=== PATIENT | male | born 1965 | race Caucasian/White ===

== ENCOUNTER 2020-06-17 05:40 | Emergency (ER) | payer OTHER, SELFPAY ==
--- NOTE | ~2020-06-17 | CT_ITS ---
EXAMINATION: CT ABDOMEN AND PELVIS WITHOUT CONTRAST CLINICAL INFORMATION: Right lower quadrant pain. Concern for appendicitis. COMPARISON: None. TECHNIQUE: Contiguous axial thin section helical images of the abdomen and pelvis were performed without oral or IV contrast. The data set was reformatted in the coronal and sagittal planes and reviewed on an independent workstation. Please note that evaluation for inflammatory and infectious processes is significantly limited due to the lack of IV contrast. DLP: 661 mGy-cm. FINDINGS: The visualized lung bases are clear. The visualized portions of the heart are unremarkable. The liver is of normal size and attenuation without focal lesions nor intrahepatic biliary ductal dilation. A normal gallbladder is identified. There is no wall thickening or discernible pericholecystic fluid. The spleen, pancreas, adrenal glands are unremarkable. Both kidneys are of normal size and attenuation without nephrolithiasis. There is right grade 2 hydroureteronephrosis secondary to an obstructive 3 mm distal right ureteral calculus. There is no abdominal free fluid. There is neither mesenteric nor retroperitoneal lymphadenopathy. Normal unopacified loops of small and large bowel are identified. There is no pelvic free fluid. The urinary bladder is unremarkable. There is neither pelvic nor inguinal lymphadenopathy. Bone windows: Neither sclerotic nor lytic bone lesions are identified. There is marked disc height loss at L5/S1. CT/CT abdomen pelvis wo con IMPRESSION: Limited study secondary to the lack of IV contrast. Please note that evaluation for inflammatory and infectious processes is significantly limited due to the lack of IV contrast. Right grade 2 hydroureteronephrosis secondary to an obstructive 3 mm distal right ureteral calculus. Automated exposure control (Care Dose) Adjustment of the mA and/or kv according to patient size (this includes techniques or standardized protocols for targeted exams where dose is matched to indication / reason for exam; i.e. extremities or head).
[2020-06-17 05:47] VITALS: BP 148/98; TEMP 36.4; O2SAT 100; BMI 28.5
--- NOTE | 2020-06-17 05:59 | ED.ABDPAIN ---
HPI - Abdominal Pain General Chief Complaint: Abdominal Pain Stated Complaint: Abdominal Pain Time Seen by Provider: 06/17/20 05:58 Source: patient Mode of arrival: ambulatory Limitations: no limitations History of Present Illness HPI narrative: Patient with no significant past medical history woke up at 04:00 with severe pain in lower abdomen unable to urinate pain radiating to right lower quadrant very anxious when he arrived walking around in the room unable to sit no nausea no vomiting. No history of kidney stone no dysuria no diarrhea patient never had similar pain in the past no flank pain Related Data Allergies Allergy/AdvReac Type Severity Reaction Status Date / Time No Known Allergies Allergy Unverified 12/04/19 19:42 [No Known Allergies*] Review of Systems Review of Systems Constitutional : No Weight loss, No Fever, No Chills ENT/Mouth : No sore throat, No Rhinorrhea Eyes: No Eye Pain, No Swelling Cardiovascular : No Chest Pain, no palpitations Respiratory : No Cough, No Sputum, no shortness of breath Gastrointestinal : no Nausea, No Vomiting, No Diarrhea, + abdominal Pain, no black stools Genitourinary : No Dysuria, No Urinary Frequency Musculoskeletal : No joint pain, No Myalgias, No Joint Swelling Skin : No Skin Lesions, No rash Neuro : No Weakness, No Numbness, No Dizziness, No Headache Psych : No Anxiety/Panic, No Depression Heme/Lymph: No Bruising, No Lymphadenopathy Endocrine : No Polyuria, No Polydipsia All other systems reviewed and are negative Physical Exam Vital Signs: Vital Signs: Last Vital Signs Temp 97.6 F 06/17/20 05:47 BP 148/98 H 06/17/20 05:47 Pulse Ox 100 06/17/20 05:47 Body Mass Index 28.5 Appearance: Alert. Oriented X3. Very anxious walking around in the room Eyes: Pupils equal, round and reactive to light. ENT: Pharynx normal. Neck: Normal inspection. Neck supple. CVS: Normal heart rate and rhythm. Pulses normal. Respiratory: No respiratory distress. Breath sounds normal. Abdomen: Soft , tenderness suprapubic and right lower quadrant no rebound tenderness or guarding Bowel sounds are present, no mass palpable, no CVA tenderness Skin: Skin warm and dry. Normal skin color. Normal skin turgor. Extremities: No lower extremity edema. Neuro: Oriented X 3. No motor deficit. No sensory deficit. MDM - Abdominal Pain MDM Narrative Medical decision making narrative: Patient is very anxious unable to sit because of pain but able to walk etiology is not very clear possibilities UTI kidney stone diverticulitis or appendicitis. Will do the labs CT scan of the abdomen check the UA Differential Diagnosis Differential diagnosis: Likely acute appendicitis, calculus of kidney, diverticulitis and renal colic PMFSH Social History Social History Advance Directives: No
[2020-06-17] MEDS: ondansetron HCL 4 MG/2 ML VIAL IVPUSH (06:14)
[2020-06-17] MEDS: Morphine Sulfate 4 MG/ML CARTRIDGE IVPUSH ×2 (06:14→10:04)
[2020-06-17] MEDS: 0.9 % Sodium Chloride 1,000 ML 999 ML IVCONT (06:14)
[2020-06-17 06:19] LABS: MANUAL DIFF FLAG NO
--- NOTE | 2020-06-17 06:26 | PC.NURSE ---
PT TO ED WITH C/O LOWER ABD PAIN WHICH WOKE PT UP FROM SLEEP. IN ROOM FOR EVAL. HL PLACED TO LAC, LABS DRAWN TO LAB, NS UP AND RUNNING W/O. PT TO CT IN STRETCHER AT THIS TIME.
[2020-06-17 06:28] LABS: Basophils Absolute Auto 0.1 X10*3/uL (0.0-0.2); Basophils Percent Auto 0.6 % (0-2); Eosinophils Absolute Auto 0.5 X10*3/uL (0.0-0.4); Hematocrit 48.5 % (42-52); Hemoglobin 16.4 g/dl (14.0-18.0); Imm Gran Abs Auto 0.13 X10*3/uL (0.00-0.03); Imm Gran Pct Auto 1.1 % (0.0-0.4); Mean Corpuscular HGB Conc 33.8 g/dl (31.0-36.0); Mean Corpuscular Hemoglobin 29.3 pg (27.0-33.0); Mean Corpuscular Volume 86.8 fL (80-98); Mean Platelet Volume 9.7 fL (9.4-12.4); Monocytes Absolute Auto 1.4 X10*3/uL (0.1-1.2); Monocytes Percent Auto 11.6 % (2-11); Neutrophils Absolute Auto 6.9 X10*3/uL (2.0-8.3); Neutrophils Percent Auto 57.7 % (45-73); Platelet Count 347 X10*3/uL (160-400); Red Blood Count 5.59 X10*6/uL (4.60-5.80); Red Cell Distribution Width 12.6 % (11.0-16.0)
[2020-06-17 06:36] LABS: Prothrombin Time 11.4 SEC (10.8-13.0)
--- NOTE | 2020-06-17 06:36 | PC.NURSE ---
PT RETURNS TO ROOM FROM CT IN STRETCHER.
[2020-06-17] MEDS: diphenhydrAMINE HCL 50 MG/ML VIAL IVPUSH (07:23)
[2020-06-17] MEDS: Metoclopramide HCl 10 MG/2 ML VIAL IVPUSH (07:23)
[2020-06-17] MEDS: Ketorolac Tromethamine 30 MG/ML VIAL IVPUSH (07:24)
[2020-06-17 07:25] LABS: Alanine Aminotransferase 40 U/L (0-40); Albumin Level 4.5 g/dL (3.5-5.0); Alkaline Phosphatase 48 U/L (39-117); Anion Gap 14 (12-20); Aspartate Amino Transferase 18 U/L (5-37); Bilirubin Direct 0.2 mg/dL (0.0-0.5); Bilirubin Total 0.5 mg/dL (0.0-1.0); Blood Urea Nitrogen 19 mg/dL (9-16); Calcium 9.1 mg/dL (8.4-10.2); Carbon Dioxide 21 mmol/L (22-29); Chloride 112 mmol/L (96-108); Creatinine Clr Calc Pharmacy 104.7; Estimated Glomerular Filt Rate > 60; Glucose Random 115 mg/dL (60-115); Lipase 30 U/L (8-78); Potassium 4.7 mmol/L (3.3-5.1); Sodium 142 mmol/L (135-145); Total Protein 7.1 g/dL (6.5-8.0)
--- NOTE | 2020-06-17 07:26 | ED.GENADULT ---
HPI - General Adult General Chief complaint: Abdominal Pain Stated complaint: Abdominal Pain Time Seen by Provider: 06/17/20 05:58 Source: patient and family (Patient's spouse) Mode of arrival: ambulatory Limitations: no limitations History of Present Illness HPI narrative: 55-year-old male who presents emergency department for evaluation of abdominal pain. He was initially seen by Dr. West and signed out to me at 6:30 a.m. pending his workup. The patient states that he woke up at 4:00 a.m. with severe pain in his right flank and right lower abdomen. He describes the pain as a squeezing, burning sensation which was 10/10. He states he got up to urinate but was unable to urinate. He states the felt that he had urinated 2nd time of was again unable to urinate. The pain got progressively worse, he had associated nausea, he was brought to the emergency department for evaluation. He was initially seen by Dr. West and treated with morphine 4 mg IV. The patient had no relief with this pain medication and I then gave him Toradol 30 mg IV, regular and 10 mg IV and Benadryl 50 mg IV. He also was treated with normal saline IV x1 L. Related Data Previous Rx's Medication Instructions Recorded oxycodone 5 mg PO Q4-6H PRN #14 tab 06/17/20 tamsulosin [Flomax] 0.4 mg PO BEDTIME #30 cap 06/17/20 Allergies Allergy/AdvReac Type Severity Reaction Status Date / Time No Known Allergies Allergy Unverified 12/04/19 19:42 [No Known Allergies*] Review of Systems Review of Systems: Yes all other systems are reviewed and are negative [facility] Past Medical History [facility] Narrative: Patient has no chronic medical problems that he is treated for, he does smoke cigarettes times 20 years, he drinks alcohol moderation, he denies drug use. Source: unable to obtain Social History Social History Smoking Status: Current every day smoker Use of substances other than those prescribed or required for medical reasons: No Advance Directives: No Physical Exam Vital Signs: Vital Signs: Last Vital Signs Temp 97.6 F 06/17/20 05:47 Pulse 84 06/17/20 08:42 Resp 18 06/17/20 08:42 BP 149/94 H 06/17/20 08:42 Pulse Ox 98 06/17/20 08:42 Body Mass Index 28.5 Const: General: in distress (Patient is writhing in pain, he is holding his groin area) Orientation/consciousness: oriented to person and oriented to place Limitations: no limitations HENMT: Head: Yes normal to inspection, Yes normocephalic and Yes atraumatic Ears: external ears normal General nose exam: Normal external nose present Face and sinus: Yes normal facial exam Mouth: Normal oral and palatal mucosa present Throat: Yes posterior oropharynx normal Eyes: Periorbital: periorbital findings normal Eyelids: Yes eyelids normal Conjunctivae: conjunctivae normal Sclerae: sclerae normal Corneas: corneas normal Pupils: Equal, round and reactive pupils present Direct Ophthalmoscopy: normal light reflex Neck: Neck: Yes full ROM, Yes no lymphadenopathy, Yes no meningeal signs, Yes trachea midline and Yes supple Chest: Chest palpation & inspection: normal inspection of the chest and normal palpation of entire chest wall Resp: Effort & Inspection: normal respiratory effort and able to speak in complete sentences Auscultation: clear to auscultation bilaterally Cardio: Rate: regular rate Rhythm: regular rhythm Heart sounds: S1 normal heart sound present, S2 normal heart sound present and no murmurs GI: Inspection: Yes normal to inspection Palpation (GI): Soft to palpation, nontender, no guarding, not rigid and No hepatosplenomegaly present Auscultation: normal bowel sounds : General: Yes no CVA tenderness Back/Spine/Pelvis: Back: no CVA tenderness Cervical Spine: normal cervical lordosis Thoracic/Lumbar Spine: thoracic and lumbar spine normal to inspection Skin: Lesions: no lesions Rashes: no rashes Wounds: no wounds Neuro: General: oriented to person, oriented to place and no meningeal signs Cranial nerves: Yes CN's II-XII intact bilaterally and Yes Equal, round and reactive pupils present Cognition (Neuro): normal cognition Motor exam (neuro): 5/5 motor strength present throughout Extrem: General: Yes normal to inspection and Yes full ROM Psych: Appearance: well kempt Mental Status: mental status grossly normal Speech and movement: Normal speech and movement present Affect: Anxious affect present Thought process: Normal thought process present Thought content: Normal thought content present Course Course Course Narrative: 55-year-old male who presents emergency department for evaluation of severe right flank and right groin pain which began at 4:00 a.m.. Physical examination did reveal that he was in distress secondary to his pain otherwise exam was unremarkable. Laboratory evaluation was unremarkable. The patient's CT scan of the abdomen pelvis without IV contrast revealed a distal, 3 mm, right ureteral stone with right side hydronephrosis. The patient's pain did return and he required a 2nd dose of morphine 4 mg IV. Was also given Flomax 4 mg orally. Revealed 2+ blood, negative nitrates and negative leukocyte esterase. The patient was discharged home with printed instructions on kidney stones. He was advised to take Tylenol and ibuprofen for pain and take oxycodone for pain not relieved by Tylenol was also advised to take Flomax 4 mg once a day until he passes the stone. He will be referred to our on-call urologist. [place] search was performed and the patient had to prescription for controlled substances over a 1 year search interval. Medical Decision Making Lab Data Result diagrams: 06/17/20 06:13 06/17/20 06:49 Labs: Lab Results 06/17/20 06/17/20 06/17/20 Range/Units 06:13 06:13 06:49 WBC 12.0 H (4.8-10.8) X10*3/uL RBC 5.59 (4.60-5.80) X10*6/uL Hgb 16.4 (14.0-18.0) g/dl Hct 48.5 (42-52) % MCV 86.8 (80-98) fL MCH 29.3 (27.0-33.0) pg MCHC 33.8 (31.0-36.0) g/dl RDW 12.6 (11.0-16.0) % Plt Count 347 (160-400) X10*3/uL MPV 9.7 (9.4-12.4) fL Immature Gran % (Auto) 1.1 H (0.0-0.4) % Neut % (Auto) 57.7 (45-73) % Lymph % (Auto) 25.0 (20-40) % [place] % (Auto) 11.6 H (2-11) % Eos % (Auto) 4.0 (0-4) % Baso % (Auto) 0.6 (0-2) % Lymph # (Auto) 3.0 (1.2-4.9) X10*3/uL [place] # (Auto) 1.4 H (0.1-1.2) X10*3/uL Eos # (Auto) 0.5 H (0.0-0.4) X10*3/uL Baso # (Auto) 0.1 (0.0-0.2) X10*3/uL Abs Immat Gran (auto) 0.13 H (0.00-0.03) X10*3/uL Absolute Neuts (auto) 6.9 (2.0-8.3) X10*3/uL Absolute Nucleated RBC 0.000 (0.0-0.012) X10*3/uL Nucleated RBC % (auto) 0.0 (0.0-0.2) /100WBC PT 11.4 (10.8-13.0) SEC INR 1.0 (0.9-1.1) Sodium 142 (135-145) mmol/L Potassium 4.7 (3.3-5.1) mmol/L Chloride 112 H (96-108) mmol/L Carbon Dioxide 21 L (22-29) mmol/L Anion Gap 14 (12-20) BUN 19 H (9-16) mg/dL Creatinine 0.95 (0.5-1.4) mg/dL Estim Creat Clear Calc 104.7 Estimated GFR > 60 Random Glucose 115 (60-115) mg/dL Calcium 9.1 (8.4-10.2) mg/dL Total Bilirubin 0.5 (0.0-1.0) mg/dL Direct Bilirubin 0.2 (0.0-0.5) mg/dL AST 18 (5-37) U/L ALT 40 (0-40) U/L Alkaline Phosphatase 48 (39-117) U/L Total Protein 7.1 (6.5-8.0) g/dL Albumin 4.5 (3.5-5.0) g/dL Lipase 30 (8-78) U/L Urine Color Urine Appearance Urine pH (5.0-8.0) Ur Specific [place] (1.005-1.025) Urine Protein (NEG-TRACE) MG/DL Urine Glucose (UA) (NEG) MG/DL Urine Ketones (NEG) MG/DL Urine Blood (NEG) Urine Nitrite (NEG) Ur Leukocyte Esterase (NEG) 06/17/20 Range/Units 09:10 WBC (4.8-10.8) X10*3/uL RBC (4.60-5.80) X10*6/uL Hgb (14.0-18.0) g/dl Hct (42-52) % MCV (80-98) fL MCH (27.0-33.0) pg MCHC (31.0-36.0) g/dl RDW (11.0-16.0) % Plt Count (160-400) X10*3/uL MPV (9.4-12.4) fL Immature Gran % (Auto) (0.0-0.4) % Neut % (Auto) (45-73) % Lymph % (Auto) (20-40) % [place] % (Auto) (2-11) % Eos % (Auto) (0-4) % Baso % (Auto) (0-2) % Lymph # (Auto) (1.2-4.9) X10*3/uL [place] # (Auto) (0.1-1.2) X10*3/uL Eos # (Auto) (0.0-0.4) X10*3/uL Baso # (Auto) (0.0-0.2) X10*3/uL Abs Immat Gran (auto) (0.00-0.03) X10*3/uL Absolute Neuts (auto) (2.0-8.3) X10*3/uL Absolute Nucleated RBC (0.0-0.012) X10*3/uL Nucleated RBC % (auto) (0.0-0.2) /100WBC PT (10.8-13.0) SEC INR (0.9-1.1) Sodium (135-145) mmol/L Potassium (3.3-5.1) mmol/L Chloride (96-108) mmol/L Carbon Dioxide (22-29) mmol/L Anion Gap (12-20) BUN (9-16) mg/dL Creatinine (0.5-1.4) mg/dL Estim Creat Clear Calc Estimated GFR Random Glucose (60-115) mg/dL Calcium (8.4-10.2) mg/dL Total Bilirubin (0.0-1.0) mg/dL Direct Bilirubin (0.0-0.5) mg/dL AST (5-37) U/L ALT (0-40) U/L Alkaline Phosphatase (39-117) U/L Total Protein (6.5-8.0) g/dL Albumin (3.5-5.0) g/dL Lipase (8-78) U/L Urine Color YELLOW Urine Appearance CLEAR Urine pH 5.5 (5.0-8.0) Ur Specific [place] >= 1.030 H (1.005-1.025) Urine Protein NEG (NEG-TRACE) MG/DL Urine Glucose (UA) NEG (NEG) MG/DL Urine Ketones NEG (NEG) MG/DL Urine Blood 2+ H (NEG) Urine Nitrite NEG (NEG) Ur Leukocyte Esterase NEG (NEG) Discharge Plan Discharge Clinical Impression: Calculus of distal right ureter, Renal colic on right side Patient Disposition: Home, Self-Care Instructions: Kidney Stones (ED), How to Strain Your Urine (ED) Additional Instructions: Your blood work was unremarkable. Your urinalysis was consistent with blood in your urine, this is common with kidney stones. The CT scan of your abdomen and pelvis without IV contrast revealed that you have a 3 mm stone in your right ureter (the ureter is the tube the connects to kidney to the bladder). This is the cause of your pain. Take ibuprofen 200 mg pills, 3 pills every 6 hours as needed for pain. Take Tylenol (acetaminophen) 500 mg pills, 2 pills every 4 to 6 hours as needed for pain. For pain not relieved by ibuprofen and Tylenol, take oxycodone 5 mg pills, 1 pill every 4-6 hours as needed for pain. This is a narcotic pain medication and can be addicting. If your concerned about addiction do not feel this medication or you can ask the pharmacist for less pills than prescribed. Take Flomax (tamsulosin) 4 mg pills, 1 pill at night until you passed the kidney stone. Follow-up with our on-call urologist Dr. Cabral within 1-2 weeks.. Please return to the emergency department if your symptoms get worse or if you develop any symptoms that are concerning to you. Prescriptions: New oxycodone 5 mg tablet 5 mg PO Q4-6H PRN (Reason: pain) Qty: 14 RF: 0 tamsulosin [Flomax] 0.4 mg capsule 0.4 mg PO BEDTIME Qty: 30 RF: 0 Referrals: Lenin Cabral MD [Physician] - 2 weeks (3 mm right distal ureteral stone)
[2020-06-17 07:30] VITALS: BP 177/104; PULSE 64; RESP 22; O2SAT 98
--- NOTE | 2020-06-17 07:34 | PC.NURSE ---
PT ALERT AND ORIENTED, SKIN DIAPHORETIC, CLAMY TO TOUCH, RESPIRATIONS EVEN BUT BREATHING RELALY FAST ABOUT 22-24 AT THIS TIME. PT REPROTS BEING WOKEN UP AT 0430 WITH VERY SHARP PAIN IN THE RIGHT LOWER ABD PAIN THAT RADIATES TO HIS GROIN WITH NAUSEA. DENIES DIARRHEA
[2020-06-17 08:42] VITALS: BP 149/94; PULSE 84; RESP 18; O2SAT 98
[2020-06-17] MEDS: Tamsulosin HCL 0.4 MG CAPSULE PO (08:46)
[2020-06-17 09:36] LABS: Glucose Urine UA NEG (NEG); Leukocyte Esterase Urine NEG (NEG); Nitrite Urine NEG (NEG); PH 5.5 (5.0-8.0); Specific Gravity - Urine >= 1.030 (1.005-1.025); Urine Blood 2+ (NEG); Urine Ketones NEG (NEG); Urine Protein NEG (NEG-TRACE)
[2020-06-17 09:37] LABS: Appearance Urine CLEAR; Color Urine YELLOW
[2020-06-17 09:49] LABS: Mucus Urine 1+ /LPF; WBC Urine 0-2 /HPF (0-4)
== END 2020-06-17 10:51 | disposition home or self-care (01) ==
PROVIDERS: Internal Medicine; Emergency Provider Emergency Medicine Emergency Medical Services; PCP Physician Assistant Medical
DX: N13.2 Hydronephrosis with renal and ureteral calculous obstruction (principal); F17.200 Nicotine dependence, unspecified, uncomplicated
CPT/HCPCS: 36415; 74176; 80048; 80076; 81001; 83690; 85025; 85610; 96361; 96374; 96375; 96376; 99284; J1200; J1885; J2270; J2405; J2765